=== PATIENT | male | born 1960 | race African-American/Black ===

== ENCOUNTER 2016-07-20 21:00 | Emergency (ER) | payer BC ==
[~2016-07-20] VITALS: Ht 170.2 cm; Wt 90.7 kg
[2016-07-20] MEDS ORDERED: SODIUM CHLORIDE 0.9% 250 ML IV ONE (21:41)
[2016-07-20] MEDS ORDERED: ONDANSETRON HCL 4 MG/2 ML VIAL IV ONE (21:45)
[2016-07-20] MEDS ORDERED: HYDROmorphone HCL 2 MG/ML VL IV ONE (21:45)
[2016-07-20 22:06] LABS: Basophils # (auto) 0.1 uL; Eosinophils # (auto) 0.1 uL; Eosinophils % (auto) 1.2 % (0.0-7.0); Hematocrit 37.1 % (41.0-53.0); Hemoglobin 12.3 g/dL (13.5-17.5); Lymphocytes # (auto) 1.4 uL; Lymphocytes % (auto) 24.4 % (10.0-50.0); Mean Corpuscular Hemoglobin 32.8 pg (28.0-32.0); Mean Corpuscular Hgb Conc. 33.3 g/dL (32.0-36.0); Mean Corpuscular Volume 98.6 fL (80.0-100.0); Mean Platelet Volume 7.3 fL (7.4-10.4); Monocytes # (auto) 0.8 uL; Monocytes % (auto) 14.4 % (0.0-12.0); Neutrophils # (auto) 3.3 uL; Platelet Count (auto) 263 10^3/uL (140-450); Red Cell Distribution Width 13.7 % (11.6-16.0); White Blood Cell 5.6 10^3/uL (4.4-10.8)
[2016-07-20 22:21] LABS: Albumin 3.5 g/dL (3.4-5.0); BUN/Creatinine Ratio 6.7; Calcium 8.4 mg/dL (8.5-10.1); Magnesium 2.2 mg/dL (1.6-2.6); Potassium 3.9 mmol/L (3.5-5.1)
[2016-07-20 22:22] LABS: INR 0.99 (0.9-1.15); Partial Thromboplastin Time 26.8 sec (22.64-33.71); Prothrombin Time 10.7 sec (9.37-12.3)
[2016-07-20 22:24] LABS: Bilirubin, Total 0.5 mg/dL (0.2-1.0); Total Protein 7.5 g/dL (6.4-8.2)
[2016-07-21] MEDS ORDERED: HYDROmorphone HCL 2 MG/ML VL IV ONE ×2 (01:45→03:30)
[2016-07-21 03:15] VITALS: BP 132/85
== END 2016-07-21 03:25 | disposition short-term general hospital (02) ==
LOC: EDBD 21:00 → ER 21:24
DX: S72.002A Fracture of unspecified part of neck of left femur, initial encounter for closed fracture (principal); I10 Essential (primary) hypertension; W19.XXXA Unspecified fall, initial encounter; Z91.81 History of falling; Y93.89 Activity, other specified; Y99.8 Other external cause status; Y92.89 Other specified places as the place of occurrence of the external cause; Z96.642 Presence of left artificial hip joint
CPT/HCPCS: 36415; 71010; 73502; 80053; 83735; 85025; 85610; 85730; 93005; 94761; 96361; 96374; 96375; 96376; 99285; J1170; J2405